=== PATIENT | female | born 1965 | race Native Hawaiian/Other Pacific Islander ===

== ENCOUNTER 2020-11-07 03:41 | Emergency (ER) | payer BC ==
[~2020-11-07] VITALS: Ht 160 cm; Wt 136.1 kg
[~2020-11-07 03:41] MED LIST: ASA LO-DOSE81 MG OR; AZMACORT; BENICAR HCT1 TAB PO; FERROUS SULF325 M1 OR; HYDR25TA60 PO; LEVAQUIN500 MG OR; LIPITOR20 MG PO; PROAIR HFA IN; SINGULAIR10 MG OR; SYNTHROID175 MCG PO; UNITH DIRECT200 MCG PO; UNITH DIRECT75 MCG OR
[2020-11-07 04:18] LABS: PLATELET COUNT 169 K/uL (152-353)
[2020-11-07 04:22] LABS: POTASSIUM 3.5 mmol/L (3.6-5.2); SODIUM 137 mmol/L (136-145)
[2020-11-07] MEDS ORDERED: NEURONTIN 100M100 MG (05:25)
[2020-11-07] MEDS ORDERED: [UNRECOGNIZED DRUG - CODE] XX (05:28)
[2020-11-07] MEDS ORDERED: MONTELUKAST SOD10 MG PO (05:29)
[2020-11-07] MEDS ORDERED: CLARITIN10 MG PO (05:30)
[2020-11-07] MEDS ORDERED: ALBUTERO1 (05:38)
[2020-11-07 05:45] VITALS: BP 153/80; TEMP 98.2
[2020-11-07] MEDS ORDERED: PROVENTIL (05:52)
[2020-11-07] MEDS ORDERED: VITAMIN D35000 UNI3 PO (05:53)
[2020-11-07] MEDS ORDERED: CENTRUM SILVER (05:55)
[2020-11-07] MEDS ORDERED: TRIPLE OMEGA-3-6-9 (05:56)
== END 2020-11-07 05:45 | disposition home or self-care (01) ==
LOC: ED 03:41
PROVIDERS: Family Medicine
DX: J45.901 Unspecified asthma with (acute) exacerbation (principal); J40 Bronchitis, not specified as acute or chronic; Z20.828 Contact with and (suspected) exposure to other viral communicable diseases
CPT/HCPCS: 36415; 80053; 82550; 82553; 83605; 83880; 84484; 85027; 87635; 93005; 94664; 96374; 96376; 99284; J2930; U0003

== ENCOUNTER 2020-12-25 22:16 | Emergency (ER) | payer BC ==
[~2020-12-25] VITALS: Ht 160 cm; Wt 139.7 kg
[~2020-12-25 22:16] MED LIST changes: +ALBUTERO1; +CENTRUM SILVER; +CLARITIN10 MG PO; +MONTELUKAST SOD10 MG PO; +NEURONTIN 100M100 MG; +PROVENTIL; +TRIPLE OMEGA-3-6-9; +VITAMIN D35000 UNI3 PO; +[UNRECOGNIZED DRUG - CODE] XX
[2020-12-25 23:20] LABS: PLATELET COUNT 162 K/uL (152-353)
[2020-12-25 23:27] LABS: POTASSIUM 3.6 mmol/L (3.6-5.2)
[2020-12-26 00:08] VITALS: BP 173/80; TEMP 97.9
== END 2020-12-26 00:08 | disposition home or self-care (01) ==
LOC: ED 22:16
PROVIDERS: Family Medicine
DX: J45.901 Unspecified asthma with (acute) exacerbation (principal); Z20.828 Contact with and (suspected) exposure to other viral communicable diseases
CPT/HCPCS: 80053; 85027; 87635; 94664; 96374; 99284; J2930; U0003

== ENCOUNTER 2021-01-14 08:50 | Outpatient (CLI) | payer BC | END 2021-01-14 19:30 | disposition home or self-care (01) | LOC: RAD 08:50 | PROVIDERS: ATTEND Nurse Practitioner Family | DX: I10 Essential (primary) hypertension (principal); E03.9 Hypothyroidism, unspecified; D64.9 Anemia, unspecified; E78.5 Hyperlipidemia, unspecified; E66.01 Morbid (severe) obesity due to excess calories; R73.03 Prediabetes; J45.909 Unspecified asthma, uncomplicated; G25.81 Restless legs syndrome; E55.9 Vitamin D deficiency, unspecified ==

== ENCOUNTER 2021-04-07 10:01 | Outpatient (CLI) | payer BC | END 2021-04-07 19:54 | disposition home or self-care (01) | LOC: RESP 10:01 | PROVIDERS: ATTEND Internal Medicine Cardiovascular Disease | DX: I10 Essential (primary) hypertension (principal) ==

== ENCOUNTER 2021-05-07 15:05 | Emergency (ER) | payer BC ==
[~2021-05-07] VITALS: Ht 160 cm; Wt 140.6 kg
[2021-05-07 15:12] VITALS: TEMP 98.9
[2021-05-07 15:45] LABS: PLATELET COUNT 185 K/uL (152-353)
[2021-05-07 15:47] LABS: POTASSIUM 3.7 mmol/L (3.6-5.2)
[2021-05-07 16:42] VITALS: BP 157/98
== END 2021-05-07 16:42 | disposition home or self-care (01) ==
LOC: ED 15:05
PROVIDERS: Family Medicine
DX: J20.9 Acute bronchitis, unspecified (principal); J45.909 Unspecified asthma, uncomplicated
CPT/HCPCS: 36415; 80053; 85027; 94664; 96374; 99284; J2930

== ENCOUNTER 2021-06-17 08:13 | Emergency (ER) | payer BC ==
[~2021-06-17] VITALS: Ht 160 cm; Wt 143.8 kg
[2021-06-17 08:46] LABS: PLATELET COUNT 174 K/uL (152-353)
[2021-06-17 08:58] LABS: POTASSIUM 3.4 mmol/L (3.6-5.2)
[2021-06-17 10:36] VITALS: BP 189/99; TEMP 98.6
== END 2021-06-17 10:37 | disposition home or self-care (01) ==
LOC: ED 08:13
PROVIDERS: Family Medicine
DX: J45.901 Unspecified asthma with (acute) exacerbation (principal); J10.1 Influenza due to other identified influenza virus with other respiratory manifestations; Z20.822 Contact with and (suspected) exposure to COVID-19
CPT/HCPCS: 80053; 85027; 87502; 87635; 94664; 96372; 99283; J2930; U0003

== ENCOUNTER 2021-07-01 18:23 | Emergency (ER) | payer BC ==
[~2021-07-01] VITALS: Ht 160 cm; Wt 143.3 kg
[2021-07-01 20:38] LABS: PLATELET COUNT 190 K/uL (152-353)
[2021-07-01 20:49] LABS: POTASSIUM 3.6 mmol/L (3.6-5.2); SODIUM 143 mmol/L (136-145)
[2021-07-01 20:58] LABS: PARTIAL THROMBOPLASTIN TIME 22.5 SECONDS (24.5-33.6)
[2021-07-01 22:46] VITALS: BP 143/85; TEMP 98.7
== END 2021-07-01 22:46 | disposition home or self-care (01) ==
LOC: ED 18:23
PROVIDERS: Hospitalist
DX: J40 Bronchitis, not specified as acute or chronic (principal); J45.901 Unspecified asthma with (acute) exacerbation; Z20.822 Contact with and (suspected) exposure to COVID-19
CPT/HCPCS: 36415; 36591; 80053; 82550; 83880; 84484; 85027; 85610; 85730; 87635; 93005; 94664; 96374; 96375; 99284; J2405; J2930; U0003

== ENCOUNTER 2021-07-27 14:35 | Emergency (ER) | payer BC ==
[~2021-07-27] VITALS: Ht 160 cm; Wt 143.3 kg
[2021-07-27 15:15] VITALS: BP 162/79; TEMP 97.6
== END 2021-07-27 15:15 | disposition home or self-care (01) ==
LOC: ED 14:35
DX: M25.562 Pain in left knee (principal); M25.561 Pain in right knee; G89.29 Other chronic pain
CPT/HCPCS: 96372; 99283; J1885; J2930